=== PATIENT | female | born 1940 | race Caucasian/White ===

== ENCOUNTER 2017-11-23 23:19 | Emergency (ER) | payer MEDICARE ==
[2017-11-23 23:50] VITALS: RESP 18
[2017-11-24 00:12] LABS: EOS % 0.4 % (0.0-4.0); HEMOGLOBIN 14.1 g/dL (11.0-16.0); MEAN PLATELET VOLUME 11.2 fL (7.2-11.7); MONO # 0.4 K/uL (0.0-0.8)
[2017-11-24 00:17] LABS: BASO % 0.6 % (0.0-2.0); LYMPH # 1.4 K/uL (1.0-4.3); LYMPH % 20.8 % (20.0-40.0); MEAN CELL VOLUME 91.9 fL (81.0-99.0); MEAN CORPUSCULAR HEMOGLOBIN 31.6 pg (27.0-31.0); MEAN CORPUSCULAR HGB CONC 34.4 g/dL (33.0-37.0); MONO % 6.2 % (0.0-10.0); NEUT # 4.7 K/uL (1.8-7.0); RBC 4.45 Mil/uL (3.80-5.20); RED CELL DISTRIBUTION WIDTH 13.4 % (11.5-14.5); WHITE BLOOD COUNT 6.5 K/uL (4.8-10.8)
[2017-11-24 00:28] LABS: ALB/GLOB RATIO 1.2 (1.0-2.1); ALBUMIN 4.3 g/dL (3.5-5.0); ALT/SGPT 25 U/L (9-52); AST/SGOT 24 U/L (14-36); BLOOD UREA NITROGEN 18 mg/dL (7-17); CALCIUM 9.7 mg/dl (8.6-10.4); GFR AFRICAN-AMERICAN > 60; GFR NON-AFRICAN AMERICAN > 60
--- NOTE | 2017-11-24 00:51 | C.PDOC ---
History Of Present Illness 77 year old female presents to the ED c/o chest pain, dizziness, nausea that started today at 20:30. As per daughter patient stefania started feeling dizzy and nauseous once that occurred she started getting worried and then she felt the pain in her chest. 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 Patient denies fever, chills, vomit, diarrhea, headache. Chief Complaint (Nursing): Chest Pain History Per: Patient, Family History/Exam Limitations: no limitations Onset/Duration Of Symptoms: Hrs Current Symptoms Are (Timing): Still Present Quality: Tightness Associated Symptoms: Nausea Modifying Factors: None Exacerbating Factors: None Alleviating Factors: None Recent travel outside of the [place]: No Additional History Per: Patient Past Medical History Reviewed: Historical Data, Nursing Documentation, Vital Signs Vital Signs: Last Vital Signs Temp 97.6 F 11/24/17 01:02 Pulse 64 11/24/17 01:02 Resp 18 11/24/17 01:02 BP 125/72 11/24/17 01:02 Pulse Ox 97 11/24/17 01:02 - Medical History PMH: GERD, HTN, Hypercholesterolemia Denies: Chronic Kidney Disease Surgical History: Cholecystectomy Family History: States: Unknown Family Hx - Social History Hx Tobacco Use: No Hx Alcohol Use: No Hx Substance Use: No - Immunization History Hx Tetanus Toxoid Vaccination: No Hx Influenza Vaccination: No Hx Pneumococcal Vaccination: No Review Of Systems Constitutional: Negative for: Fever, Chills Cardiovascular: Positive for: Chest Pain, Palpitations Respiratory: Negative for: Cough, Shortness of Breath Gastrointestinal: Positive for: Nausea. Negative for: Vomiting, Abdominal Pain Skin: Negative for: Rash Neurological: Positive for: Dizziness. Negative for: Weakness, Numbness, Headache Physical Exam - Physical Exam Appears: Non-toxic, No Acute Distress Skin: Normal Color, Warm, Dry Head: Atraumatic, Normacephalic Eye(s): bilateral: Normal Inspection Nose: No Discharge, No Deformity Oral Mucosa: Moist Neck: Normal ROM, Supple Chest: Symmetrical Cardiovascular: Rhythm Regular, Murmur (2/6 systolic) Respiratory: Normal Breath Sounds, No Rales, No Rhonchi, No Wheezing Gastrointestinal/Abdominal: Soft, No Tenderness, No Guarding, No Rebound Extremity: Normal ROM, No Tenderness, No Deformity, No Swelling Neurological/Psych: Oriented x3, Normal Speech, Normal Cognition Gait: Steady ED Course And Treatment - Laboratory Results Result Diagrams: 11/23/17 23:55 11/23/17 23:55 ECG: Interpreted By Me, Viewed By Me ECG Rhythm: Sinus Rhythm ECG Interpretation: Normal Interpretation Of ECG: normal axis, normal intervals Rate From EC O2 Sat by Pulse Oximetry: 100 (On RA) Pulse Ox Interpretation: Normal Medical Decision Making Medical Decision Making: Impression: vertigo Plan: * EKG * Labs * CXR * Antivert 25 mg IVP Disposition - Disposition Referrals: [facility] [Outside] Disposition: HOME/ ROUTINE Disposition Time: 00:49 Condition: GOOD Prescriptions: Meclizine HCl 12.5 mg PO TID PRN #15 tablet PRN Reason: Dizziness Forms: [employer] [employer] ([place]) - Clinical Impression Clinical Impression: Chest discomfort, Vertigo - Scribe Statement The provider has reviewed the documentation as recorded by the Scribe Rob Larkin All medical record entries made by the Scribe were at my direction and personally dictated by me. I have reviewed the chart and agree that the record accurately reflects my personal performance of the history, physical exam, medical decision making, and the department course for this patient. I have also personally directed, reviewed, and agree with the discharge instructions and disposition.
[2017-11-24 01:02] VITALS: BP 125/72; PULSE 64; TEMP 97.6
[2017-11-24 01:17] VITALS: O2SAT 100
--- NOTE | 2017-11-24 10:22 | RAD ---
PROCEDURE: CHEST RADIOGRAPH, 1 VIEW HISTORY: chest pain COMPARISON: Comparison is made with 02/26/2015 FINDINGS: LUNGS: No evidence a new infiltrate or consolidation in the lungs PLEURA: No pneumothorax or pleural fluid seen. CARDIOVASCULAR: Normal. OSSEOUS STRUCTURES: No significant abnormalities. VISUALIZED UPPER ABDOMEN: Normal. OTHER FINDINGS: None. IMPRESSION: No active disease.
== END 2017-11-24 01:03 | disposition home or self-care (01) ==
LOC: C.ER 23:19
DX: R07.9 Chest pain, unspecified (principal); R42 Dizziness and giddiness; I10 Essential (primary) hypertension; K21.9 Gastro-esophageal reflux disease without esophagitis; E78.00 Pure hypercholesterolemia, unspecified

== ENCOUNTER 2018-11-09 19:13 | Emergency (ER) | payer MEDICARE ==
[2018-11-09 19:49] LABS: BASO % 0.8 % (0.0-2.0); EOS % 0.3 % (0.0-4.0); HEMOGLOBIN 13.9 g/dL (11.0-16.0); LYMPH # 1.1 K/uL (1.0-4.3); LYMPH % 19.1 % (20.0-40.0); MEAN CORPUSCULAR HEMOGLOBIN 30.9 pg (27.0-31.0); MEAN CORPUSCULAR HGB CONC 33.3 g/dL (33.0-37.0); MEAN PLATELET VOLUME 10.6 fL (7.2-11.7); MONO # 0.4 K/uL (0.0-0.8); MONO % 7.4 % (0.0-10.0); NEUT # 4.3 K/uL (1.8-7.0); NEUT % 72.4 % (50.0-75.0); RBC 4.5 Mil/uL (3.80-5.20); RED CELL DISTRIBUTION WIDTH 13.3 % (11.5-14.5); WHITE BLOOD COUNT 5.9 K/uL (4.8-10.8)
[2018-11-09 20:02] LABS: ALB/GLOB RATIO 1.5 (1.0-2.1); ALBUMIN 4.4 g/dL (3.5-5.0); ALT/SGPT 7 U/L (9-52); AST/SGOT 25 U/L (14-36); BLOOD UREA NITROGEN 19 mg/dL (7-17); CALCIUM 9.5 mg/dl (8.6-10.4); GFR NON-AFRICAN AMERICAN 40
[2018-11-09 20:14] LABS: B-TYPE NATRIURETIC PEPTIDE 255 pg/mL (0-900)
[2018-11-09 21:09] VITALS: BP 111/50; PULSE 67; RESP 13; TEMP 98.2; O2SAT 98
--- NOTE | 2018-11-10 04:06 | C.PDOC ---
History Of Present Illness 78 year old female presents to the ED c/o chest pain that started at noon today. Patient reports her pain started on her neck radiating towards her left arm and cheat area. Patient states her pain is sharp in nature. Patient reports she had a stress test done one year ago today. Patient denies fever, chills, nausea, vomit, headache, SOB, weakness, numbness. Time Seen by Provider: 11/09/18 19:37 Chief Complaint (Nursing): Chest Pain History Per: Patient History/Exam Limitations: no limitations Onset/Duration Of Symptoms: Hrs (noon) Current Symptoms Are (Timing): Still Present Quality: Sharp Recent travel outside of the [place]: No Additional History Per: Patient Past Medical History Reviewed: Historical Data, Nursing Documentation, Vital Signs Vital Signs: Last Vital Signs Temp 98.2 F 11/09/18 21:08 Pulse 67 11/09/18 21:08 Resp 13 11/09/18 21:08 BP 111/50 L 11/09/18 21:08 Pulse Ox 98 11/09/18 21:08 - Medical History PMH: GERD, HTN, Hypercholesterolemia Denies: Chronic Kidney Disease Surgical History: Cholecystectomy Family History: States: Unknown Family Hx - Social History Hx Tobacco Use: No Hx Alcohol Use: No Hx Substance Use: No - Immunization History Hx Tetanus Toxoid Vaccination: No Hx Influenza Vaccination: No Hx Pneumococcal Vaccination: No Review Of Systems Constitutional: Negative for: Fever, Chills Eyes: Negative for: Vision Change Cardiovascular: Positive for: Chest Pain. Negative for: Palpitations Respiratory: Negative for: Shortness of Breath Gastrointestinal: Negative for: Nausea, Vomiting, Abdominal Pain Skin: Negative for: Rash Neurological: Negative for: Weakness, Numbness, Headache, Dizziness Physical Exam - Physical Exam Appears: Non-toxic, No Acute Distress Skin: Normal Color, Warm, Dry Head: Atraumatic, Normacephalic Eye(s): bilateral: Normal Inspection Neck: Normal ROM, Supple Chest: Symmetrical, No Tenderness Cardiovascular: Rhythm Regular Respiratory: Normal Breath Sounds, No Rales, No Rhonchi, No Wheezing Gastrointestinal/Abdominal: Soft, No Tenderness, No Guarding, No Rebound Extremity: Normal ROM, No Tenderness, No Swelling Neurological/Psych: Oriented x3, Normal Speech, Normal Cognition Gait: Steady ED Course And Treatment - Laboratory Results Result Diagrams: 11/09/18 19:47 11/09/18 19:47 Lab Results: Troponin I < 0.0120 ng/mL (0.00-0.120) 11/09/18 19:47 NT-Pro-B Natriuret Pep 255 pg/mL (0-900) 11/09/18 19:47 Total Bilirubin 0.4 mg/dL (0.2-1.3) 11/09/18 19:47 AST 25 U/L (14-36) 11/09/18 19:47 ALT 7 U/L (9-52) L D 11/09/18 19:47 Alkaline Phosphatase 114 U/L (38-126) 11/09/18 19:47 Total Protein 7.4 g/dL (6.3-8.3) 11/09/18 19:47 Albumin 4.4 g/dL (3.5-5.0) 11/09/18 19:47 Globulin 3.0 gm/dL (2.2-3.9) 11/09/18 19:47 Albumin/Globulin Ratio 1.5 (1.0-2.1) 11/09/18 19:47 ECG: Interpreted By Me, Viewed By Me ECG Rhythm: Sinus Rhythm Rate From EC (BPM) O2 Sat by Pulse Oximetry: 98 (On RA) Pulse Ox Interpretation: Normal Medical Decision Making Medical Decision Making: Plan: * EKG * Labs * CXR * Aspirin 325 mg PO Spoke with Dr. Vicente reviewed the case, patient will follow up with Dr. Vicente at her office in 2 days. Disposition - Disposition Referrals: Analy Vicente MD [Staff Provider] - Disposition: HOME/ ROUTINE Disposition Time: 20:35 Condition: GOOD Additional Instructions: CHAVA PANIAGUA, thank you for letting us take care of you today. The emergency medical care you received today was directed at your acute symptoms. If you were prescribed any medication, please fill it and take as directed. It may take several days for your symptoms to resolve. Return to the Emergency Department if your symptoms worsen, do not improve, or if you have any other problems. Please contact your doctor or call one of the physicians/clinics you have been referred to that are listed on the Patient Visit Information form that is included in your discharge packet. Bring any paperwork you were given at discharge with you along with any medications you are taking to your follow up visit. Our treatment cannot replace ongoing medical care by a primary care provider outside of the emergency department. Thank you for allowing the [email or web address] team to be part of your care today. Follow up with your primary care doctor on Sunday. She is expecting your phone call in the morning. Instructions: Muscle and Bone Pain (DC) Forms: [employer] ([place]) - Clinical Impression Clinical Impression: Atypical chest pain - Scribe Statement The provider has reviewed the documentation as recorded by the Scribe Rob Larkin All medical record entries made by the Scribe were at my direction and personally dictated by me. I have reviewed the chart and agree that the record accurately reflects my personal performance of the history, physical exam, medical decision making, and the department course for this patient. I have also personally directed, reviewed, and agree with the discharge instructions and disposition.
--- NOTE | 2018-11-10 10:23 | RAD ---
Date of service: 11/09/2018 HISTORY: chest pain COMPARISON: CT chest radiograph 11/24/2017. FINDINGS: LUNGS: No active pulmonary disease. PLEURA: No significant pleural effusion identified, no pneumothorax apparent. CARDIOVASCULAR: Calcific atherosclerotic changes are seen related to the thoracic aorta. Mild cardiomegaly evident. No pulmonary vascular congestion. OSSEOUS STRUCTURES: Prior ORIF right humerus again evident. VISUALIZED UPPER ABDOMEN: Normal. OTHER FINDINGS: None. IMPRESSION: Stable mild cardiomegaly. No pulmonary vascular congestion. No infiltrate bilaterally.
--- NOTE | 2018-11-11 09:17 | CARD ---
APPROVED REPORT Date of service: 11/09/2018 EKG Measurement Heart [id number] <Conclusion> Normal sinus rhythm Incomplete right bundle branch block Left anterior fascicular block Cannot rule out Inferior infarct (masked by fascicular block?), age undetermined Abnormal ECG
== END 2018-11-09 21:09 | disposition home or self-care (01) ==
LOC: C.ER 19:13
DX: R07.89 Other chest pain (principal); I10 Essential (primary) hypertension; E78.00 Pure hypercholesterolemia, unspecified; K21.9 Gastro-esophageal reflux disease without esophagitis